=== PATIENT | female | born 1995 | race Two or more races ===

== ENCOUNTER 2020-08-06 03:14 | Emergency (ER) | payer OTHER ==
[~2020-08-06] VITALS: Ht 160 cm; Wt 72.6 kg
[2020-08-06 08:59] VITALS: BP 103/62
== END 2020-08-06 10:19 | disposition home or self-care (01) ==
LOC: ER 03:14 → EDBD 03:14 → ER 10:19
DX: S30.1XXA Contusion of abdominal wall, initial encounter (principal); Z32.02 Encounter for pregnancy test, result negative; V43.62XA Car passenger injured in collision with other type car in traffic accident, initial encounter; Y93.89 Activity, other specified; Y92.488 Other paved roadways as the place of occurrence of the external cause; Y99.8 Other external cause status
CPT/HCPCS: 74176; 81002; 81025